=== PATIENT | female | born 1975 | race Hispanic/Latino ===

== ENCOUNTER 2018-10-01 13:56 | Emergency (ER) | payer OTHER ==
--- NOTE | 2018-10-01 14:28 | ED PDOC ---
Upper Extremity Pain/Injury Time Seen by Provider: 10/01/18 14:08 Chief Complaint (Nursing): Upper Extremity Problem/Injury Chief Complaint (Provider): Arm pain History Per: Patient Additional Complaint(s): Pt is a 43 yo female, no PMH, presents to ED with complaints of redness, pain and swelling to right upper extremity after emergency IV line was placed while Pt was admitted to labor and delivery. Pt is 3 days pos-, s/p delivery 09/27 and underwent emergency D&C due to post delivery hemmorrhage. Pt anxious and crying in triage, BP elevated and financial services agent concerned about post pre- eclampsia. Past Medical History Reviewed: Nursing Documentation, Vital Signs Vital Signs: Last Vital Signs Temp 97.6 F 10/01/18 14:02 Pulse 116 H 10/01/18 14:02 Resp 22 10/01/18 14:02 BP 161/91 H 10/01/18 14:02 Pulse Ox 98 10/01/18 14:02 - Medical History PMH: No Chronic Diseases - Surgical History Surgical History: No Surg Hx - Family History Family History: States: No Known Family Hx - Living Arrangements Living Arrangements: With Family - Home Medications Home Medications: Ambulatory Orders Medication Instructions Recorded Cephalexin [cephalexin] 500 mg PO BID #14 cap 10/01/18 Ibuprofen [Motrin] 600 mg PO Q6 #20 tab 10/01/18 - Allergies Allergies/Adverse Reactions: Allergies Allergy/AdvReac Type Severity Reaction Status Date / Time Penicillins Allergy RASH Verified 10/01/18 14:01 Review of Systems ROS Statement: Except As Marked, All Systems Reviewed And Found Negative Musculoskeletal: Positive for: Arm Pain Physical Exam - Reviewed Nursing Documentation Reviewed: Yes Vital Signs Reviewed: Yes - Physical Exam Appears: Positive for: Well, Non-toxic, No Acute Distress Head Exam: Positive for: ATRAUMATIC, NORMAL INSPECTION, NORMOCEPHALIC Skin: Positive for: Normal Color, Warm, DRY Eye Exam: Positive for: EOMI, Normal appearance, PERRL ENT: Positive for: Normal ENT Inspection Neck: Positive for: Normal, Painless ROM Cardiovascular/Chest: Positive for: Regular Rate, Rhythm Respiratory: Positive for: CNT, Normal Breath Sounds Gastrointestinal/Abdominal: Positive for: Normal Exam, Soft Back: Positive for: Normal Inspection Rectal: Positive for: Other ((+) rigth axilla: non tender, mobile, soft mass noted to right axilla ~ 3 cm) Extremity: Positive for: Other (right anticubital fossa: (+) erythema, warmpth and tenderness) Neurologic/Psych: Positive for: Alert, Oriented - Laboratory Results Result Diagrams: 10/01/18 15:01 10/01/18 15:01 - ECG O2 Sat by Pulse Oximetry: 98 Medical Decision Making Medical Decision Making: Diagnostics ordered 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 Hgb 7.1. UA: (-) Protein Pt's OB: Dr. Augustina Esquivel [phone] Contacted and case discussed.Agreed Pt stable for discharge at this time, reports that pt's Hgb was ~ 8.5 and the drop to 7.1 is expected with her significant blood loss. Will contact Pt on Wednesday to see how she is feeling and follow-up appointment is in2 weeks. IMPRESSION: Possible simple lipoma right axilla however other soft tissue lesion there including but not limited to liposarcoma not excluded. Consider follow-up MRI with contrast for further evaluation. IMPRESSION: No evidence of deep venous thrombosis within the visualized deep veins of the right upper extremity however note that the cephalic vein was not visualized on this study. Case discussed with ED MD, Dr. Tatum who also presented to see and evaluate Pt at bedside. Agreed Pt stable for discharge at this time Disposition - Clinical Impression Clinical Impression: Phlebitis, Cellulitis - Patient ED Disposition Is Patient to be Admitted: No - Disposition Disposition: Routine/Home Disposition Time: 17:44 Condition: STABLE Prescriptions: Cephalexin [cephalexin] 500 mg PO BID #14 cap Ibuprofen [Motrin] 600 mg PO Q6 #20 tab Instructions: Cellulitis (Skin Infection), Adult (DC), Phlebitis (DC), Superficial Phlebitis Forms: [employer] (German)
[2018-10-01 15:24] LABS: SQUAMOUS EPITHIAL 1 /hpf (0-5); URINE BILIRUBIN NEGATIVE (NEGATIVE); URINE BLOOD SMALL (NEGATIVE); URINE CLARITY CLEAR (Clear); URINE COLOR STRAW (YELLOW); URINE GLUCOSE (UA) NEG (Normal); URINE LEUKOCYTE ESTERASE NEG Leu/uL (Negative); URINE PROTEIN NEGATIVE (NEGATIVE); URINE UROBILINOGEN 0.2-1.0 mg/dL (0.2-1.0)
[2018-10-01 15:26] LABS: BASO % 0.3 % (0.0-2.0); EOS # 0.2 K/uL (0.0-0.7); EOS % 2.2 % (0.0-4.0); HEMOGLOBIN 7.1 g/dL (12.0-16.0); LYMPH # 0.8 K/uL (1.0-4.3); LYMPH % 11.3 % (20.0-40.0); MEAN CELL VOLUME 88.3 fl (81.0-99.0); MEAN CORPUSCULAR HEMOGLOBIN 28.7 pg (27.0-31.0); MEAN CORPUSCULAR HGB CONC 32.5 g/dL (33.0-37.0); MONO # 0.7 K/uL (0.0-0.8); MONO % 9.6 % (0.0-10.0); NEUT # 5.7 K/uL (1.8-7.0); NEUT % 76.6 % (50.0-75.0); NRBC % 0.2 % (0.0-0.0); RBC 2.48 Mil/uL (3.80-5.20); WHITE BLOOD COUNT 7.4 K/uL (4.8-10.8)
[2018-10-01 15:30] LABS: ALT/SGPT 71 U/L (9-52); AST/SGOT 102 U/L (14-36); BLOOD UREA NITROGEN 12 mg/dl (7-17); CALCIUM 8.4 mg/dL (8.4-10.2); GFR NON-AFRICAN AMERICAN > 60
[2018-10-01 15:32] LABS: URINE BACTERIA FEW (<OCC)
--- NOTE | 2018-10-01 17:00 | US ---
Date of service: 10/01/2018 PROCEDURE: Right Upper Extremity Venous Doppler HISTORY: r/o DVT COMPARISON: None available. TECHNIQUE: Right upper extremity deep veins, including the lower internal jugular, subclavian, axillary and brachial veins, were evaluated flow, compressibility and respiratory phasicity. FINDINGS: Normal flow, compressibility and respiratory phasicity was observed in the right upper extremity deep veins with the exception of the cephalic vein with that was not visualized on this exam. IMPRESSION: No evidence of deep venous thrombosis within the visualized deep veins of the right upper extremity however note that the cephalic vein was not visualized on this study.
--- NOTE | 2018-10-01 17:05 | US ---
Date of service: 10/01/2018 PROCEDURE: Ultrasound right axilla HISTORY: Right axilla, enlarged possible LN COMPARISON: No prior study available for comparison. TECHNIQUE: Ultrasound of the targeted to the soft tissues of the right axilla performed. FINDINGS: There is a heterogeneous approximately 4.6 x 2.2 x 3.5 cm soft tissue mass in the right axilla which also exhibits mild vascularity.. While this could represent a simple lipoma, other soft tissue mass lesions including but not limited to liposarcoma not excluded. Consider follow-up MRI with contrast on for further evaluation. IMPRESSION: Possible simple lipoma right axilla however other soft tissue lesion there including but not limited to liposarcoma not excluded. Consider follow-up MRI with contrast for further evaluation.
[2018-10-01 17:21] VITALS: BP 132/89; PULSE 89; RESP 18; TEMP 98.4
[2018-10-01 17:32] VITALS: O2SAT 98
--- NOTE | 2018-10-03 11:24 | US ---
Date of service: 10/01/2018 PROCEDURE: Right Upper Extremity Arterial Exam. HISTORY: One week with upper extremity swelling and pain. COMPARISON: None available. TECHNIQUE: Grayscale and duplex Doppler evaluation of the right upper extremity was performed. Report prepared by cardiovascular technician. FINDINGS: RIGHT UPPER EXTREMITY: * SCA: Peak Systolic Velocity-79.1: Doppler Waveform: Triphasic.: Plaque description - * Axillary: Peak Systolic Velocity-70.7: Doppler Waveform: Triphasic.: Plaque description - * Brachial Peak Systolic Velocity-124.7: Doppler Waveform: Triphasic.: Plaque description - * Radial Peak Systolic Velocity-72.1: Doppler Waveform: Triphasic.: Plaque description - Ulnar Peak Systolic Velocity-87.5: Doppler Waveform: Triphasic.: Plaque description - OTHER FINDINGS: No atherosclerotic calcification present IMPRESSION: There is no evidence of hemodynamically significant arterial insufficiency in right upper extremity. Concordant findings (preliminary report) provided by [facility].
== END 2018-10-01 18:00 | disposition home or self-care (01) ==
LOC: H.ER 13:56
DX: I80.9 Phlebitis and thrombophlebitis of unspecified site (principal); L03.90 Cellulitis, unspecified

== ENCOUNTER 2018-10-21 06:18 | Observation (INO) | payer OTHER ==
[2018-10-21 08:17] LABS: BASO # 0.1 K/uL (0.0-0.2); BASO % 0.9 % (0.0-2.0); EOS % 0.3 % (0.0-4.0); HEMOGLOBIN 9.7 g/dL (12.0-16.0); LYMPH # 0.2 K/uL (1.0-4.3); LYMPH % 3.2 % (20.0-40.0); MEAN CELL VOLUME 80.8 fl (81.0-99.0); MEAN CORPUSCULAR HGB CONC 32.1 g/dL (33.0-37.0); MEAN PLATELET VOLUME 7.4 fl (7.2-11.7); MONO # 0.1 K/uL (0.0-0.8); MONO % 2.2 % (0.0-10.0); NEUT # 5.8 K/uL (1.8-7.0); NEUT % 93.4 % (50.0-75.0); PLATELET COUNT 282 K/uL (130-400); RBC 3.73 Mil/uL (3.80-5.20); RED CELL DISTRIBUTION WIDTH 14.9 % (11.5-14.5); WHITE BLOOD COUNT 6.2 K/uL (4.8-10.8)
[2018-10-21 08:25] LABS: SQUAMOUS EPITHIAL 1 /hpf (0-5); URINE BILIRUBIN NEGATIVE (NEGATIVE); URINE BLOOD MODERATE (NEGATIVE); URINE CLARITY SLIGHTY-CLOUDY (Clear); URINE COLOR YELLOW (YELLOW); URINE GLUCOSE (UA) NEG (NEGATIVE); URINE LEUKOCYTE ESTERASE MOD Leu/uL (Negative); URINE PROTEIN NEGATIVE (NEGATIVE); URINE UROBILINOGEN 0.2-1.0 mg/dL (0.2-1.0)
[2018-10-21 08:35] LABS: BLOOD UREA NITROGEN 21 mg/dl (7-17); GFR NON-AFRICAN AMERICAN > 60
[2018-10-21 08:36] LABS: ALB/GLOB RATIO 1.3 (1.0-2.1); ALBUMIN 3.8 g/dL (3.5-5.0); ALT/SGPT 17 U/L (9-52); AST/SGOT 21 U/L (14-36); CALCIUM 8.5 mg/dL (8.4-10.2)
[2018-10-21 09:10] LABS: BANDS 4 % (0-2); LYMPHOCYTE 2 % (20-50); MONOCYTE 5 % (0-10); NEUTROPHIL 89 % (42-75); TOTAL CELLS COUNTED 100
[2018-10-21 09:11] LABS: ANISOCYTOSIS SLIGHT; HYPOCHROMIC SLIGHT; LARGE PLATELETS PRESENT; OVALOCYTES SLIGHT; PLATELET ESTIMATE NORMAL (NORMAL)
[2018-10-21] MEDS ORDERED: Magnesium Sulfate 2 gm/50 ml 2 GM/50 ML BAG IVPB ONE ×2 (09:22→19:36)
[2018-10-21] MEDS ORDERED: Sodium Chloride 0.9% 1,000 ML IV STA (09:23)
--- NOTE | 2018-10-21 09:42 | ED PDOC ---
HPI: Chest Pain Time Seen by Provider: 10/21/18 07:04 Chief Complaint (Nursing): Breast Problem Chief Complaint (Provider): Breast Problem History Per: Patient History/Exam Limitations: no limitations Onset/Duration Of Symptoms: Sudden Onset Current Symptoms Are (Timing): Better Additional Complaint(s): 43 year old female with pmHx of gestational hypertension, presents to ED, 3 weeks from an induced delivery at [place], for an evaluation of sudden onset of dizziness and shaking. Patient was breast pumping on pediatric floor of this hospital where is admitted for pneumonia when symptoms began then sent to ED for evaluation. Upon arrival, patient is sleepy but arousable. At present, she reports feeling improvement but states that her breast feels engorged. Otherwise, she offers no further complaints. PCP: Dr. Jael Álvarez Past Medical History Reviewed: Historical Data, Nursing Documentation, Vital Signs Vital Signs: Last Vital Signs Temp 97.8 F 10/21/18 06:30 Pulse 109 H 10/21/18 06:30 Resp 16 10/21/18 06:30 BP 118/64 10/21/18 06:30 Pulse Ox 100 10/21/18 06:30 - Medical History PMH: HTN (gestational), Hypothyroidism - Family History Family History: States: Unknown Family Hx - Home Medications Home Medications: Ambulatory Orders Medication Instructions Recorded Cephalexin [cephalexin] 500 mg PO BID #14 cap 10/01/18 Ibuprofen [Motrin] 600 mg PO Q6 #20 tab 10/01/18 - Allergies Allergies/Adverse Reactions: Allergies Allergy/AdvReac Type Severity Reaction Status Date / Time Penicillins Allergy RASH Verified 10/01/18 14:01 Review of Systems ROS Statement: Except As Marked, All Systems Reviewed And Found Negative Cardiovascular: Positive for: Chest Pain (bilateral breast) Neurological: Positive for: Dizziness, Other (tremors) Physical Exam - Reviewed Nursing Documentation Reviewed: Yes Vital Signs Reviewed: Yes - Physical Exam Appears: Positive for: Non-toxic, No Acute Distress, Uncomfortable Head Exam: Positive for: ATRAUMATIC, NORMAL INSPECTION, NORMOCEPHALIC Skin: Positive for: Normal Color Eye Exam: Positive for: Normal appearance ENT: Positive for: Normal ENT Inspection Neck: Positive for: Normal Cardiovascular/Chest: Positive for: Tachycardia, Other (bilaterally engorged breasts with tenderness to palpation (-) edema distally). Negative for: Regular Rate, Rhythm Respiratory: Positive for: Normal Breath Sounds. Negative for: Respiratory Distress Gastrointestinal/Abdominal: Positive for: Normal Exam, Soft Extremity: Positive for: Normal ROM (upper/lower) Neurologic/Psych: Positive for: Alert, Oriented. Negative for: Motor/Sensory Deficits - Laboratory Results Result Diagrams: 10/21/18 08:00 10/21/18 08:00 - ECG O2 Sat by Pulse Oximetry: 100 (RA) Pulse Ox Interpretation: Normal Medical Decision Making Medical Decision Making: Time: 737 Initial Plan: * EKG * Labs * Accucheck * IV fluids Time: 7:45 --Accucheck: 110 mg/dL Time: 817 --EKG: sinus tachycardia at 116 BMP. Marked prolonged QTC at 617. Cardiac monitoring initiated. Time: 921 --Labs reviewed: significant for hypomagnesemia, moderate anemia at 6.7, mildly elevated BUN at 21, and evidence for small UTI. Magnesium sulfate 2gm in 50ml IVPB additionally ordered with call out for cardiac consult. Scribe Attestation: Documented by Rosangela Helton, acting as a scribe for Herbert Bajwa III, DO. Provider Scribe Attestation: All medical record entries made by the Scribe were at my direction and personally dictated by me. I have reviewed the chart and agree that the record accurately reflects my personal performance of the history, physical exam, medical decision making, and the department course for this patient. I have also personally directed, reviewed, and agree with the discharge instructions and disposition. Disposition - Disposition
[2018-10-21] MEDS ORDERED: Magnesium Sulfate 2 gm/50 ml 2 GM/50 ML BAG ONE (09:43)
[2018-10-21] MEDS: Lactated Ringer's 1,000 ML IV SCH ×8 (13:20→20:52)
--- NOTE | 2018-10-21 19:35 | CARD ---
APPROVED REPORT Date of service: 10/21/2018 EXAM: Two-dimensional and M-mode echocardiogram with Doppler and color Doppler. Other Information Quality : GoodRhythm : Tachycardia INDICATION Abnormal EKG/Arrhythmia 2D DIMENSIONS IVSd0.57 (0.7-1.1cm)LVDd4.10 (3.9-5.9cm) LVOT Diameter2.18 (1.8-2.4cm)PWd0.66 (0.7-1.1cm) IVSs1.17 (0.8-1.2cm)LVDs3.08 (2.5-4.0cm) FS (%) 24.8 %PWs0.99 (0.8-1.2cm) M-Mode DIMENSIONS Left Atrium (MM)3.18 (2.5-4.0cm)IVSd0.80 (0.7-1.1cm) Aortic Root3.18 (2.2-3.7cm)LVDd4.43 (4.0-5.6cm) Aortic Cusp Exc.2.53 (1.5-2.0cm)PWd0.85 (0.7-1.1cm) IVSs1.06 cmFS (%) 39 % LVDs2.70 (2.0-3.8cm)PWs1.31 cm Aortic Valve AoV Peak Ngdykqxw548.6cm/sAoV VTI21.4cmAO Peak GR.6mmHg LVOT Peak Ulcubche678.2cm/sLVOT VTI17.51cmAO Mean GR.3mmHg BERNARD (VMAX)1.98rx6MQA (VTI)1.60cm2 Mitral Valve MV E Nzcdjrei30.0cm/sMV DECEL [id number] A Ejqlddvv15.1cm/s MV UEP47hlS/A ratio1.0MVA (PHT)3.45cm2 TDI E/Lateral E'0.0E/Medial E'0.0 LEFT VENTRICLE The left ventricle is normal size. There is normal left ventricular wall thickness. The left ventricular systolic function is normal. The estimated ejection fraction is 60-65% No regional wall motion abnormalities noted.. The left ventricular diastolic function is normal. No left ventricle thrombus noted on this study. There is no ventricular septal defect visualized. There is no left ventricular aneurysm. There is no mass noted in the left ventricle. RIGHT VENTRICLE The right ventricle is normal size. There is normal right ventricular wall thickness. The right ventricular systolic function is normal. ATRIA The left atrium size is normal. The right atrium size is normal. The interatrial septum is intact with no evidence for an atrial septal defect. AORTIC VALVE The aortic valve is normal in structure. No aortic regurgitation is present. There is no aortic valvular stenosis. There is no aortic valvular vegetation. MITRAL VALVE The mitral valve is normal in structure. There is no evidence of mitral valve prolapse. There is no mitral valve stenosis. There is no mitral valve regurgitation noted. TRICUSPID VALVE The tricuspid valve is normal in structure. There is trivial tricuspid valve regurgitation noted. There is no tricuspid valve prolapse or vegetation. There is no tricuspid valve stenosis. PULMONIC VALVE The pulmonary valve is normal in structure. There is no pulmonic valvular regurgitation. There is no pulmonic valvular stenosis. GREAT VESSELS The aortic root is normal in size. The ascending aorta is normal in size. The pulmonary artery is normal. The IVC is normal in size and collapses >50% with inspiration. PERICARDIAL EFFUSION There is no pericardial effusion. There is no pleural effusion. <Conclusion> The estimated ejection fraction is 60-65% The left ventricular diastolic function is normal. The left atrium size is normal. There is trivial tricuspid valve regurgitation noted.
--- NOTE | 2018-10-21 19:52 | CARD ---
APPROVED REPORT Date of service: 10/21/2018 EKG Measurement Heart [id number] <Conclusion> Sinus tachycardia with premature atrial complexes Nonspecific ST and T wave abnormality Abnormal ECG
--- NOTE | 2018-10-21 20:07 | CARD ---
APPROVED REPORT Date of service: 10/21/2018 EKG Measurement Heart [id number] [place] [id number] <Conclusion> Sinus tachycardia Nonspecific ST and T wave abnormality Prolonged QT Abnormal ECG
--- NOTE | 2018-10-21 20:30 | CP.PCM.CON ---
History of Present Illness - History of Present Illness History of Present Illness: 43 y/o female sp post hemorrhage, presents with shaking episode. no hx of sz. no loc. mild dizziness. found to have tachycardia with prolong qt 2ndary to low mag, dehydration and anemia. denies f/c/n/v/d/c. denies ppi use. denies abd pain or recurrent sig bleed. prescribed iron oupt and yet to start. no palp, cp or sob. no jadiel edema, redness or pain. Review of Systems - Constitutional Constitutional: As Per HPI, Chills. absent: Anorexia, Daytime Sleepiness, Excessive Sweating, Fatigue, Fever, Frequent Falls, Headache, Increased Appetite, Lethargy, Malaise, Night Sweats, Snoring, Sleep Apnea, Weight Gain, Weight Loss, Weakness, Other - EENT Eyes: As Per HPI. absent: Blind Spots, Blurred Vision, Change in Vision, Decreased Night Vision, Diplopia, Discharge, Dry Eye, Exophthalmos, Floaters, Irritation, Itchy Eyes, Loss of Peripheral Vision, Pain, Photophobia, Requires Corrective Lenses, Sees Flashes, Spots in Vision, Tunnel Vision, Other Visual Disturbances, Loss of Vision, Other Ears: As Per HPI. absent: Decreased Hearing, Ear Discharge, Ear Pain, Tinnitus, Abnormal Hearing, Disequilibrium, Dizziness, Other Nose/Mouth/Throat: As Per HPI. absent: Epistaxis, Nasal Congestion, Nasal Discharge, Nasal Obstruction, Nasal Trauma, Nose Pain, Post Nasal Drip, Sinus Pain, Sinus Pressure, Bleeding Gums, Change in Voice, Dental Pain, Dry Mouth, Dysphagia, Halitosis, Hoarsness, Lip Swelling, Mouth Lesions, Mouth Pain, Odynophagia, Sore Throat, Throat Swelling, Tongue Swelling, Facial Pain, Neck Pain, Neck Mass, Other - Breasts Breasts: As Per HPI. absent: Change in Shape, Mass, Pain, Nipple Discharge, Nipple Inversion, Skin Changes, Swelling, Other - Cardiovascular Cardiovascular: As Per HPI, Lightheadedness. absent: Acrocyanosis, Chest Pain, Chest Pain at Rest, Chest Pain with Activity, Claudication, Diaphoresis, Dyspnea, Dyspnea on Exertion, Edema, Irregular Heart Rhythm, Pain Radiating to Arm/Neck/Jaw, Leg Edema, Leg Ulcers, Orthopnea, Palpitations, Paroxysmal Nocturnal Dyspnea, Pedal Edema, Radiating Pain, Rapid Heart Rate, Slow Heart Rate, Syncope, Other - Respiratory Respiratory: As Per HPI. absent: Cough, Dyspnea, Hemoptysis, Dyspnea on Exertion, Wheezing, Snoring, Stridor, Pain on Inspiration, Chest Congestion, Excessive Mucous Production, Change in Mucous Color, Pain with Coughing, Other - Gastrointestinal Gastrointestinal: As Per HPI. absent: Abdominal Pain, Belching, Bloating, Change in Bowel Habits, Change in Stool Character, Coffee Ground Emesis, Cons tipation, Cramping, Diarrhea, Dyspepsia, Dysphagia, Early Satiety, Excessive Flatus, Fecal Incontinence, Heartburn, Hematemesis, Hematochezia, Loose Stools, Melena, Nausea, Odynophagia, Temesmus, Vomiting, Other - Genitourinary Genitourinary: As Per HPI. absent: Change in Urinary Stream, Difficulty Urinating, Dysuria, Flank Pain, Hematuria, Pyuria, Nocturia, Urinary Incontinence, Urinary Frequency, Urinary Hesitance, Urinary Urgency, Voiding Freq/Small Amts, Freq UTI, Hx Renal/Bladder Calculi, Hx /Renal Surgery, Bladder Distension, Other - Reproductive: Female Reproductive:Female: As Per HPI, Abnormal Vaginal Bleeding. absent: Amenorrhea, Amenorrhea/ Control, Currently Menstual, Cycle <21 Days, Cycle >35 Days, Cycle Variable, Menses 1-7 Days, Menses >/= 8 Days, Menses Variable, Cycle > 4 Weeks Between, No Menses for 6 Months, Heavy Menses, Light Menses, Normal Menses, Spotting Between Cycles, S/P Hysterectomy, Menopausal, Post Menopausal, Premenarche, Dysmenorrhea, Dyspareunia, Genital Lesions, Genital Pruritis, Pelvic Pain, Prolapse Symptoms, Sexual Dysfunction, Vaginal Discharge, Vaginal Dryness, Vaginal Odor, Vaginal Pruritis, Other - Menstruation Menstruation: As Per HPI. absent: Amenorrhea, Amenorrhea/ Control, Currently Menstual, Cycle <21 Days, Cycle >35 Days, Cycle Variable, Menses 1-7 Days, Menses >/= 8 Days, Menses Variable, Cycle > 4 Weeks Between, No Menses for 6 Months, Heavy Menses, Light Menses, Normal Menses, Spotting Between Cycles, S/P Hysterectomy, Menopausal, Post Menopausal, Premenarche, Abnormal Vaginal Bleeding, Dysmenorrhea, Other - Musculoskeletal Musculoskeletal: As Per HPI. absent: Abnormal Gait, Arthralgias, Atrophy, Back Pain, Deformity, Joint Swelling, Limited Range of Motion, Loss of Height, Muscle Cramps, Muscle Weakness, Myalgias, Neck Pain, Numbness, Radiating Pain into Limb, Stiffness, Tingling, Other - Integumentary Integumentary: As Per HPI. absent: Acne, Alopecia, Bleeding Lesions, Change in Hair, Change in Nails, Change in Pigmentation, Changing Lesions, Dry Skin, Erythema, Furuncle, Hirsutism, Lesions, New Lesions, Non-Healing Lesions, Photosensitivity, Pruritus, Rash, Skin Pain, Skin Ulcer, Sores, Striae, Swel ling, Unusual Bruising, Wounds, Jaundice, Other - Neurological Neurological: As Per HPI, Tremor. absent: Abnormal Gait, Abnormal Hearing, Abnormal Movements, Abnormal Speech, Behavioral Changes, Burning Sensations, Confusion, Convulsions, Disequilibrium, Dizziness, Numbness, Focal Weakness, Frequent Falls, Headaches, Lack of Coordination, Loss of Vision, Memory Loss, Paresthesias, Radicular Pain, Restless Legs, Sensory Deficit, Syncope, Tingling, Vertigo, Weakness, Other Visual Disturbances, Other - Psychiatric Psychiatric: As Per HPI. absent: Abnormal Sleep Pattern, Anhedonia, Anxiety, Auditory Hallucinations, Behavioral Changes, Change in Appetite, Change in Libido, Confusion, Depression, Difficulty Concentrating, Hallucinations, Homicidal Ideation, Hopelessness, Irritability, Memory Loss, Mood Swings, Panic Attacks, Paranoia, Suicidal Ideation, Visual Hallucinations, Tactile Hallucinations, Other - Endocrine Endocrine: As Per HPI. absent: Change in Body Appearance, Change in Libido, Cold Intolorance, Deepening of Voice, Excessive Sweating, Fatigue, Flushing, He at Intolorance, Increase in Ring/Shoe/Hat Size, Palpitations, Polydipsia, Polyphagia, Polyuria, Other - Hematologic/Lymphatic Hematologic: As Per HPI. absent: Easy Bleeding, Easy Bruising, Lymphadenopathy, Other Past Patient History - Tetanus Immunizations Tetanus Immunization: Unknown - Past Medical History & Family History Past Medical History?: Yes Past Family History: Reviewed and not pertinent - Past Social History Smoking Status: Never Smoked Chewing Tobacco Use: No Cigar Use: No Alcohol: Occasional Drugs: Denies Home Situation {Lives}: With Family Domestic Violence: Negative - CARDIAC Hx Cardiac Disorders: Yes Hx Hypertension: Yes (gestational) - PULMONARY Hx Respiratory Disorders: No - NEUROLOGICAL Hx Neurological Disorder: No - HEENT Hx HEENT Problems: No - RENAL Hx Chronic Kidney Disease: No - ENDOCRINE/METABOLIC Hx Endocrine Disorders: Yes Hx Hypothyroidism: Yes - HEMATOLOGICAL/ONCOLOGICAL Hx Blood Disorders: Yes Hx Anemia: Yes Hx Blood Transfusions: Yes - INTEGUMENTARY Hx Dermatological Problems: No - MUSCULOSKELETAL/RHEUMATOLOGICAL Hx Musculoskeletal Disorders: No - GASTROINTESTINAL Hx Gastrointestinal Disorders: No - GENITOURINARY/GYNECOLOGICAL Hx Genitourinary Disorders: No - PSYCHIATRIC Hx Psychophysiologic Disorder: No Hx Substance Use: No - SURGICAL HISTORY Hx Surgeries: Yes (see history) - ANESTHESIA Hx Anesthesia: No Meds Allergies/Adverse Reactions: Allergies Allergy/AdvReac Type Severity Reaction Status Date / Time Penicillins Allergy RASH Verified 10/01/18 14:01 - Medications Medications: Current Medications Lactated Ringer's (Lactated Ringer's) 1,000 mls @ 1,000 mls/hr IV .Q1H CURT Last Admin: 10/21/18 18:59 Dose: Not Given Magnesium Sulfate (Magnesium Sulfate 2 Gm/50 Ml Water) 2 gm in 50 mls @ 50 mls/hr IVPB ONCE ONE Stop: 10/21/18 20:35 Physical Exam - Constitutional Appears: Well - Head Exam Head Exam: ATRAUMATIC, NORMAL INSPECTION, NORMOCEPHALIC - Eye Exam Eye Exam: EOMI, Normal appearance, PERRL. absent: Conjunctival injection, Nystagmus, Periorbital swelling, Periorbital tenderness, Scleral icterus Pupil Exam: NORMAL ACCOMODATION, PERRL. absent: Fixed, Irregular, Miosis, Mydriatic, Unequal - ENT Exam ENT Exam: Mucous Membranes Dry, Normal Exam. absent: Mucous Membranes Moist, Normal External Ear Exam, Normal Oropharynx, TM's Normal Bilaterally - Neck Exam Neck exam: Positive for: Normal Inspection. Negative for: Full Rom, Lymphadenopathy, Meningismus, Tenderness, Thyromegaly - Respiratory Exam Respiratory Exam: Clear to Auscultation Bilateral, NORMAL BREATHING PATTERN. absent: Accessory Muscle Use, Chest Wall Tenderness, Decreased Breath Sounds, Prolonged Expiratory Phase, Rales, Rhonchi, Wheezes, Respiratory Distress, Stridor - Cardiovascular Exam Cardiovascular Exam: Tachycardia, REGULAR RHYTHM, +S1, +S2. absent: Bradycardia, Clicks, Diastolic murmur, Gallop, Irregular Rhythm, JVD, RRR, Rubs, +S4, Systolic Murmur - GI/Abdominal Exam GI & Abdominal Exam: Normal Bowel Sounds, Soft. absent: Bruit, Diminished Bowel Sounds, Distended, Firm, Guarding, Hernia, Hyperactive Bowel Sounds, Hypoactive Bowel Sounds, Mass, Organomegaly, Pulsatile Mass, Rebound, Rigid, Tenderness - Rectal Exam Rectal Exam: Deferred - Extremities Exam Extremities exam: Positive for: normal inspection, pedal pulses present. Negative for: calf tenderness, full ROM, joint swelling, normal capillary refill, pedal edema, tenderness - Back Exam Back exam: NORMAL INSPECTION. absent: CVA tenderness (L), CVA tenderness (R), FULL ROM, muscle spasm, paraspinal tenderness, rash noted, tenderness, vertebral tenderness - Neurological Exam Neurological exam: Alert, CN II-XII Intact, Normal Gait, Oriented x3, Reflexes Normal - Psychiatric Exam Psychiatric exam: Normal Affect, Normal Mood - Skin Skin Exam: Dry, Intact, Normal Color, Warm Results - Vital Signs Recent Vital Signs: Last Vital Signs Temp 98.8 F 10/21/18 19:38 Pulse 98 H 10/21/18 19:38 Resp 16 10/21/18 19:38 BP 118/81 10/21/18 19:38 Pulse Ox 99 10/21/18 19:38 - Labs Result Diagrams: 10/21/18 08:00 10/21/18 08:00 Labs: Laboratory Results - last 24 hr 10/21/18 10/21/18 10/21/18 07:45 08:00 08:00 WBC 6.2 RBC 3.73 L Hgb 9.7 L D Hct 30.2 L MCV 80.8 L D MCH 26.0 L MCHC 32.1 L RDW 14.9 H Plt Count 282 MPV 7.4 Neut % (Auto) 93.4 H Lymph % (Auto) 3.2 L [place]k % (Auto) 2.2 Eos % (Auto) 0.3 Baso % (Auto) 0.9 Neut # (Auto) 5.8 Lymph # (Auto) 0.2 L [place] # (Auto) 0.1 Eos # (Auto) 0.0 Baso # (Auto) 0.1 Neutrophils % (Manual) 89 H Band Neutrophils % 4 H Lymphocytes % (Manual) 2 L Monocytes % (Manual) 5 Platelet Estimate Normal Large Platelets Present Hypochromasia (manual) Slight Anisocytosis (manual) Slight Ovalocytes Slight Sodium 134 Potassium 4.1 Chloride 101 Carbon Dioxide 20 L Anion Gap 17 BUN 21 H Creatinine 0.8 Est GFR ( Amer) > 60 Est GFR (Non-Af Amer) > 60 POC Glucose (mg/dL) 110 Random Glucose 110 H Calcium 8.5 Magnesium 1.4 L Total Bilirubin 0.5 AST 21 ALT 17 Alkaline Phosphatase 82 Total Protein 6.7 Albumin 3.8 Globulin 2.9 Albumin/Globulin Ratio 1.3 Urine Color Urine Clarity Urine pH Ur Specific [place] Urine Protein Urine Glucose (UA) Urine Ketones Urine Blood Urine Nitrate Urine Bilirubin Urine Urobilinogen Ur Leukocyte Esterase Urine RBC (Auto) Urine Microscopic WBC Ur Squamous Epith Cells 10/21/18 10/21/18 08:00 14:06 WBC RBC Hgb Hct MCV MCH MCHC RDW Plt Count MPV Neut % (Auto) Lymph % (Auto) [place] % (Auto) Eos % (Auto) Baso % (Auto) Neut # (Auto) Lymph # (Auto) [place] # (Auto) Eos # (Auto) Baso # (Auto) Neutrophils % (Manual) Band Neutrophils % Lymphocytes % (Manual) Monocytes % (Manual) Platelet Estimate Large Platelets Hypochromasia (manual) Anisocytosis (manual) Ovalocytes Sodium Potassium Chloride Carbon Dioxide Anion Gap BUN Creatinine Est GFR ( Amer) Est GFR (Non-Af Amer) POC Glucose (mg/dL) Random Glucose Calcium Magnesium 1.8 Total Bilirubin AST ALT Alkaline Phosphatase Total Protein Albumin Globulin Albumin/Globulin Ratio Urine Color Yellow Urine Clarity Slighty-cloudy Urine pH 5.0 Ur Specific [place] 1.018 Urine Protein Negative Urine Glucose (UA) Neg Urine Ketones Negative Urine Blood Moderate Urine Nitrate Negative Urine Bilirubin Negative Urine Urobilinogen 0.2-1.0 Ur Leukocyte Esterase Mod Urine RBC (Auto) 5 H Urine Microscopic WBC 5 Ur Squamous Epith Cells 1 Assessment & Plan (1) Prolonged QT interval Status: Acute (2) Hypomagnesemia Status: Acute (3) Dehydration Status: Acute (4) Tachycardia Status: Acute (5) Dizziness, nonspecific Status: Acute (6) Episode of shaking Status: Acute (7) Anemia associated with acute blood loss Status: Acute - Assessment and Plan (Free Text) Plan: echo images personally reviewed. no evidence of cardiomyopathy or valvular disease. nml ef. under filled ventricle and ivc c/w dehydration. pt given ivf, and iv magnesium. repeat ekg shows normalized qt. episode of shaking likely due to low mag. no n/v/d/c. pt with anemia due to acute hemorrhage. prescribed feso4 by supervisor dials, yet to start. no sxs post mag iv 4gm. pt may be d/c to home. if sx return she is instructed to come back to er. pt instructed to start iron and drink pedialyte. 45 min total care time.
[2018-10-22 11:42] VITALS: O2SAT 98
--- NOTE | 2018-10-22 14:51 | CARD ---
APPROVED REPORT Date of service: 10/22/2018 EKG Measurement Heart [id number] <Conclusion> Normal sinus rhythm Low voltage QRS Borderline ECG
[2018-10-22] MEDS: Lactated Ringer's 1,000 ML IV SCH (16:47)
[2018-10-22 17:03] VITALS: BP 94/59; PULSE 97; RESP 18; TEMP 98.4
== END 2018-10-22 18:55 | disposition home or self-care (01) ==
LOC: H.ER 06:18 → H.ERHOLD 12:20 → H.TEL 21:17
PROVIDERS: ADMIT Family Medicine; ATTEND Family Medicine
DX: O99.285 Endocrine, nutritional and metabolic diseases complicating the puerperium (principal); E86.0 Dehydration; E03.9 Hypothyroidism, unspecified; D62 Acute posthemorrhagic anemia; O72.1 Other immediate postpartum hemorrhage; I45.81 Long QT syndrome; E83.42 Hypomagnesemia; O90.81 Anemia of the puerperium
CPT/HCPCS: 80053; 81003; 82948; 83735; 85025; 93005; 93306; 96374; 96376; 99285; G0378; J7030; J7120